=== PATIENT | male | born 1965 | race Caucasian/White ===

== ENCOUNTER 2018-02-16 12:14 | Emergency (ER) | payer BC ==
[~2018-02-16] VITALS: Ht 180.3 cm; Wt 224.5 kg
[2018-02-16 12:20] VITALS: BP 159/96
--- NOTE | 2018-02-16 12:46 | PHYS DOC ---
Adult General Chief Complaint Chief Complaint: KNEE INJURY HPI HPI 52-year-old male presents with right knee pain. The patient was at work lifting a box and turning when he began to have right medial knee pain. Over the last several days, the patient has continued to have pain seems to be getting worse. He tried using sleeve brace, but it is not helping. He has been working at least 12 hour days and is on his feet most of the day. Patient admits to being extremely overweight. He did not hear a pop or click with the injury. He denies any discernible swelling. He denies fever, chills, fall, or recent trauma. He has been taking naproxen for pain. No other complaints. Review of Systems Review of Systems Constitutional: Denies fever or chills [] Eyes: Denies change in visual acuity, redness, or eye pain [] HENT: Denies nasal congestion or sore throat [] Respiratory: Denies cough or shortness of breath [] Cardiovascular: No additional information not addressed in HPI [] GI: Denies abdominal pain, nausea, vomiting, bloody stools or diarrhea [] : Denies dysuria or hematuria [] Musculoskeletal: Denies back pain[] Integument: Denies rash or skin lesions [] Neurologic: Denies headache, focal weakness or sensory changes [] Endocrine: Denies polyuria or polydipsia [] All other systems were reviewed and found to be within normal limits, except as documented in this note. Physical Exam Physical Exam Constitutional: Well developed, well nourished, no acute distress, non-toxic appearance. [] HENT: Normocephalic, atraumatic, bilateral external ears normal, oropharynx moist, no oral exudates, nose normal. [] Eyes: PERRLA, EOMI, conjunctiva normal, no discharge. [] Neck: Normal range of motion, no tenderness, supple, no stridor. [] Cardiovascular:Heart rate regular rhythm, no murmur [] Lungs & Thorax: Bilateral breath sounds clear to auscultation [] Abdomen: Bowel sounds normal, soft, no tenderness, no masses, no pulsatile masses. [] Skin: Warm, dry, no erythema, no rash. [] Back: No tenderness, no CVA tenderness. [] Extremities: Tenderness over the right medial collateral ligament. He does not appear to have significant ligament laxity. Pain with external rotation. [] Neurologic: Alert and oriented X 3, normal motor function, normal sensory function, no focal deficits noted. [] Psychologic: Affect normal, judgement normal, mood normal. [] EKG EKG [] Radiology/Procedures Radiology/Procedures [] Course & Med Decision Making Course & Med Decision Making Pertinent Labs and Imaging studies reviewed. (See chart for details) Based on the history and physical exam, the patient likely has a medial collateral ligament strain. Exam did not reveal significant ligamental laxity so it is unlikely to be completely torn. I will give the patient Lynn 5/325 for breakthrough pain. Due to his schedule, he will be difficult for him to rest the leg. I have encouraged him to try to rest as much as he can and to be very careful about his movements. He will follow-up with his PCP to consider physical therapy if needed. [] Dragon Disclaimer Dragon Disclaimer This electronic medical record was generated, in whole or in part, using a voice recognition dictation system. Departure Departure: Referrals: CAMILLA LARIOS (PCP) Scripts Hydrocodone Bit/Acetaminophen (NORCO 5-325 TABLET) 1 Each Tablet 1 TAB PO PRN Q6HRS PRN for PAIN, #12 TAB 0 Refills Prov: DIAMANTE FLOWERS DO 02/16/18 DIAMANTE FLOWERS DO February 16, 2018 12:46
[2018-02-16] MEDS ORDERED: HYDR-971 PO (12:51)
== END 2018-02-16 12:57 | disposition home or self-care (01) ==
LOC: ER 12:14
DX: M25.561 Pain in right knee (principal); X58.XXXA Exposure to other specified factors, initial encounter; Y93.89 Activity, other specified; Y99.8 Other external cause status; Y92.89 Other specified places as the place of occurrence of the external cause
CPT/HCPCS: 99283